=== PATIENT | female | born 1955 | race Caucasian/White ===

== ENCOUNTER 2021-07-13 17:23 | Emergency (ER) | payer MEDICARE, OTHER | END 2021-07-13 20:20 | disposition home or self-care (01) | LOC: MW.ED 17:23 | DX: M54.6 Pain in thoracic spine (principal); I10 Essential (primary) hypertension; Z79.899 Other long term (current) drug therapy | CPT/HCPCS: 71101-26-RT; 71101-RT; 72072; 72072-26; 99282; 99283 ==

== ENCOUNTER 2021-08-18 10:01 | Day surgery (SDC) | payer MEDICARE, OTHER ==
[~2021-08-18 10:01] MED LIST: Lactated Ringers 1,000 ML IV SCH; Propofol 200 MG/20 ML SDV ONE
[2021-08-18] MEDS ORDERED: Lactated Ringers 1,000 ML IV SCH (11:30)
== END 2021-08-18 12:10 | disposition home or self-care (01) ==
LOC: MW.SDS 10:01
PROVIDERS: ATTEND Surgery
DX: K57.30 Diverticulosis of large intestine without perforation or abscess without bleeding (principal); I25.10 Atherosclerotic heart disease of native coronary artery without angina pectoris; E78.00 Pure hypercholesterolemia, unspecified; I10 Essential (primary) hypertension; E53.8 Deficiency of other specified B group vitamins; E55.9 Vitamin D deficiency, unspecified; Z79.899 Other long term (current) drug therapy; Z98.890 Other specified postprocedural states
CPT/HCPCS: 45378; J2704; J7120